=== PATIENT | male | born 1965 | race Caucasian/White ===

== ENCOUNTER 2019-07-31 08:54 | Inpatient (IN) | payer SELFPAY ==
[2019-07-31] VITALS (11 sets, daily range): BP systolic 94–111; BP diastolic 78–91; PULSE 95–131; RESP 20–24; TEMP 35.9–36.1; O2SAT 100; BMI 29.5
--- NOTE | 2019-07-31 | ECHO_ITS ---
Patient Info Name: Sammy Rocha Age: 54 years : 1965 Gender: Male Ht: 70 in Wt: 206 lbs BSA: 2.17 m2 HR: 105 bpm BP: 96 / 81 mmHg Heart Rhythm: Atrial Fibrillation Technical Quality: Good Exam Date: 07/31/2019 1:55 PM Exam Location: [facility] Patient Status: Inpatient Admit Date: 07/31/2019 Staff Ordering Physician: Francisca Persaud MD Lifter/Driver: Stevan Dang RDCS Attending Provider: Tan Cisse MD Referring Physician: Cori MORRISON; Exam Type: CA echo doppler color flow Study Info Indications J81.0 - Acute pulmonary edema Complete two-dimensional, color flow and Doppler transthoracic echocardiogram is performed. History/Risk Factors CHF and pulmonary edema; SOB, COPD exacerbation, PNA/CAP - sepsis, opiate and EtOH abuse. Summary 1. Left ventricular chamber dimension is mildly enlarged. 2. Left ventricular systolic function is severely reduced, estimated at 15-20%. 3. There is no increased left ventricular wall thickness. 4. The left ventricular diastolic function is abnormal. 5. The apical septum, apical lateral wall, apical cap, mid inferoseptal, mid anterolateral wall, and mid anteroseptal are akinetic. 6. The basal inferoseptal, basal anterolateral wall, and mid inferolateral wall are hypokinetic. 7. The inferior wall, and anterior wall are not visualized. 8. Right ventricular chamber dimension is moderately enlarged. 9. Right ventricular systolic function is reduced. 10. Left atrial chamber dimension is severely enlarged. 11. Right atrial chamber dimension is moderately enlarged. 12. The mitral valve has thickened leaflets. 13. There is severe mitral valve regurgitation. 14. Severe pulmonary hypertension, estimated pulmonary arterial systolic pressure is 61 mmHg. 15. There is moderate tricuspid valve regurgitation. 16. 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 Left Ventricle Left ventricular chamber dimension is mildly enlarged. Left ventricular systolic function is severely reduced, estimated at 15-20%. There is no increased left ventricular wall thickness. The left ventricular diastolic function is abnormal. The apical septum, apical lateral wall, apical cap, mid inferoseptal, mid anterolateral wall, and mid anteroseptal are akinetic. The basal inferoseptal, basal anterolateral wall, and mid inferolateral wall are hypokinetic. The inferior wall, and anterior wall are not visualized. Right Ventricle Right ventricular chamber dimension is moderately enlarged. Right ventricular systolic function is reduced. Left Atria Left atrial chamber dimension is severely enlarged. Right Atria Right atrial chamber dimension is moderately enlarged. Atrial Septum Suspected patent foramen ovale visualized by color flow imaging. Aortic Valve The aortic valve is trileaflet. There is mild aortic valve sclerosis. There is no aortic valve stenosis. There is trace aortic valve regurgitation. Pulmonic Valve The pulmonic valve is normal. There is no pulmonic valve stenosis. There is trace pulmonic regurgitation. Mitral Valve The mitral valve has thickened leaflets. There is no mitral valve stenosis. There is severe mitral valve regurgitation. 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 Tricuspid Valve The tricuspid valve leaflets are normal. There is no significant tricuspid valve stenosis. There is moderate tricuspid valve regurgitation. Severe pulmonary hypertension, estimated pulmonary arterial systolic pressure is 6
--- NOTE | ~2019-07-31 | XR_ITS ---
XR chest ET placement 07/31/2019 09:58 Indication: Endotracheal tube and central line placement. Respiratory distress. Procedure: AP portable chest Comparison: 07/31/2019 Findings: Endotracheal tube tip 4.7 cm above the alison. Left IJ central line tip in the SVC. Moderat e cardiomegaly. Mild interstitial edema. No pneumothorax or pleural effusion. NG tube in the stomach. Impression: 1: Moderate cardiomegaly with interstitial edema. Reviewed, dictated and finalized at location B. IFIED CONTROL SYSTEMS TECHNICIAN Impression: 1: Moderate cardiomegaly with interstitial edema.
--- NOTE | ~2019-07-31 | US_ITS ---
EXAMINATION: US art doppler w press LE BI DATE: 07/31/2019 12:00 INDICATION: Peripheral arterial disease. TECHNIQUE: Segmental pressures and plethysmographic and Doppler waveforms of the brachial and lower e xtremity arteries were obtained. COMPARISON: None. FINDINGS: Right and left brachial artery pressures of 109 mm Hg and 99 mm Hg, respectively, are concordant (nor mal difference <= 30 mmHg). Only a faint arterial signal was detectable in right posterior tibial artery. The right ankle-brachia l index (ROBERTO) could not be measured due to inability to cuff-occlude dorsalis pedis (normal >= 0.9-1. 0). The right great toe-brachial index (TBI) could not be measured (normal >= 0.65). Arterial Doppler waveforms are at least triphasic in common femoral artery and biphasic in superficial femoral artery , popliteal artery, and dorsalis pedis. The dorsalis pedis and posterior tibial arterial signals could not be detected. The left TBI was not measured. Arterial Doppler waveforms are biphasic in common femoral artery, superficial femoral arter y, popliteal artery. IMPRESSION: 1. Nondiagnostic ABIs. Arterial signal was only faintly detectable in right posterior tibial artery. There is no detectable arterial signal in left posterior tibial artery or dorsalis pedis. Reviewed, dictated and finalized at location A. SLOT TECHNICIAN IMPRESSION: 1. Nondiagnostic ABIs. Arterial signal was only faintly detectable in right pos terior tibial artery. There is no detectable arterial signal in left posterior tibial artery or dorsalis pedis.
--- NOTE | ~2019-07-31 | US_ITS ---
US right upper quadrant INDICATION: Elevated liver function tests. PROCEDURE: Realtime right upper abdominal ultrasound. COMPARISON: No prior studies for comparison. FINDINGS: The pancreas is normal without focal mass or pancreatic ductal dilation. There is mild int rahepatic biliary dilatation. Otherwise, liver echotexture is normal. No focal masses. There is norm al directional flow in the portal vein. Evaluation of gallbladder limited due to patient inability to roll on side. The gallbladder is normal without stones, gallbladder wall thickening or pericholecystic fluid. Gallbladder is not well disten ded, limiting evaluation for gallbladder wall thickening. Common bile duct measures 4 mm. No sonogra phic Fierro's sign. IMPRESSION: 1: Mild intrahepatic biliary dilatation. Reviewed, dictated and finalized at location B. DE SALES CONSULTANT
--- NOTE | ~2019-07-31 | XR_ITS ---
XR abdomen NG/feed tube insert INDICATION: Evaluate NG tube position. TECHNIQUE: Limited KUB perform for evaluating NG tube . COMPARISON: No prior studies for comparison. FINDINGS: NG tube tip in the stomach. Visualized bowel gas pattern is unremarkable. IMPRESSION: 1: NG tube tip in the stomach. Reviewed, dictated and finalized at location B. RINTENDENT OF SCHOOLS
[2019-07-31] MEDS: PROPOFOL IV EMULSION 100 ML 8.4 MG IV CONT (09:40)
[2019-07-31] MEDS: MIDAZOLAM HCL 50 MG in DEXTROSE 5% 90 ML IV CONT (10:12)
--- NOTE | 2019-07-31 10:30 | P.PCNBED_ITS ---
Procedures Intubation: Intubation Date: 07/31/19 Intubation Time: 09:14 A pre- procedural Time-Out was completed immediately before starting the procedure and confirmed: Patient Identification, Site, Procedure, Patient Position and the Availability of Requisite Equipment: Yes Sedative: etomidate Paralytic: succinylcholine Laryngoscope: fiber optic video scope Assist device used: fiber optic device ET tube size: 8 Tube secured depth (cm): 24 Tube secured location: lips Tube placement confirmation: visualized tube passing through cords, equal breath sounds bilaterally, no breath sounds over epigastrium and confirmation by capnometry Patient tolerated procedure: well Intubation complications: none Additional comments: After obtaining consent from the patient and son and explaining the rationale for intubation. it was decided to go ahead and intubate the patient. The patient was lying in the supine position. Preoxygenation via BVM was provided for a minimum of 3 minutes. The patient had continuous cardiac as well as pulse oximetry monitoring during the procedure. Rapid sequence induction was provided by administration of Etomidate and Succinylcholine. A Glidescope blade 4 was used to directly visualize the vocal cords. A 8 mm endotracheal tube was visualized advancing between the cords to a level of 24 cm at the lip. The style tte was then removed. Tube placement was also noted by fogging in the tube, equal and bilateral breath sounds, no sounds over the epigastrium, and end-tidal colorimetric monitoring. The cuff was then inflated with 10 ml of air and the tube secured using a commercially available device. A good pulse oximetry wave form was seen on the monitor throughout the procedure. The patient was then connected to the ventilator at a tidal volume of 450 ml; rate of 20; FiO2 of 100%; and PEEP of 5. A portable chest x-ray has been ordered for placement. Continued sedation will be provided by Fentanyl and Versed continuous infusion titrated to a RASS of -2. The patient tolerated the procedure well.
--- NOTE | 2019-07-31 10:33 | WPDPROCEDUR ---
Procedures Central Line Placement: Left IJ: Discussed w/ patient and/or surrogate, the non-emergent placement of a central venous catheter, including its clinical necessity/indication & associated potential risks & complications.: Yes The patient and/or surrogate understand(s) and acknowledge(s) the need to proceed with central venous catheter insertion as an important element of the patient's clinical management.: Yes Central Line Date: 07/31/19 Central Line Time: 09:25 Pre-procedural Time-Out was completed immediately before starting the procedure and confirmed: Patient Identification, Site, Procedure, Patient Position and the Availability of Requisite Equipment.: Yes Patient Position: other ( reverse Trendelenburg) Patient placed on monitor/pulse ox: Yes Provider Prep: mask, sterile gown, sterile gloves, Max. sterile barrier precautions, cap and hand hygiene Central line prep: Chlorhexidine scrub and sterile full body sheet applied Local anesthesia used: lidocaine 1% Amount of anesthesia used (ml): 4 Ultrasound used for placement: Yes Central line lumen inserted: triple [place]: 16 Length (cm): 16 Depth of Insertion (cm): 16 Post procedure: sutured in place, good blood return, all ports aspirated, flushed, capped, tegaderm, hemostatic disc, antimicrobial disc and aseptic technique maintained throughout procedure Post procedure x-ray: tip of catheter in good position Patient tolerated procedure: well Complications: none
--- NOTE | 2019-07-31 10:36 | WPDCNINT ---
Assessment and Plan Assessment and plan (1) Severe sepsis: Code(s): A41.9 - Sepsis, unspecified organism; R65.20 - Severe sepsis without septic shock Status: Acute Assessment and Plan: patient presented to the outside hospital with leukocytosis, lactic acidosis, worsening respiratory failure, infiltrates, tachycardia - Source of infection - lungs - blood cultures, urine cultures and sputum cultures have been obtained - patient started on cefepime and azithromycin - patient is holding his own blood pressures at this time (2) Acute respiratory failure: Qualifiers: Respiratory failure complication: unspecified whether with hypoxia or hypercapnia Qualified Code(s): J96.00 - Acute respiratory failure, unspecified whether with hypoxia or hypercapnia Code(s): J96.00 - Acute respiratory failure, unspecified whether with hypoxia or hypercapnia Status: Acute Assessment and Plan: patient presented to the outside hospital with worsening shortness of breath despite taking multiple nebulizer treatments. Patient was diagnosed with community-acquired pneumonia and COPD exacerbation, transfer the ICU at [facility] on 07/30/2019. - Chest x-ray and ABGs reviewed - continue patient on mechanical ventilation, CMV mode, wean FiO2 as tolerated - sedated with fentanyl and Versed infusion, daily sedation vacation, maintain RASS of 0 to -2 (3) Acute exacerbation of chronic obstructive airways disease: Code(s): J44.1 - Chronic obstructive pulmonary disease with (acute) exacerbation Status: Acute Assessment and Plan: patient possible with acute exacerbation of COPD, patient has been steroid dependent, - patient currently intubated, ABGs do not reveal hypercapnia - continue mechanical ventilation, had it is Solu-Medrol as patient is steroid dependent. - continue bronchodilators and antibiotics as above (4) Community acquired pneumonia: Qualifiers: Laterality: unspecified laterality Qualified Code(s): J18.9 - Pneumonia, unspecified organism Code(s): J18.9 - Pneumonia, unspecified organism Status: Acute Assessment and Plan: continue antibiotics as above, on mechanical ventilation (5) Steroid dependent: Status: Acute Assessment and Plan: started on Solu-Medrol (6) Alcoholic: Code(s): F10.20 - Alcohol dependence, uncomplicated Status: Acute Assessment and Plan: patient with history of severe alcoholism and drinks 1-1.5 pt of vodka daily - patient started on folic acid and thiamine - currently intubated and sedated with fentanyl and Versed infusion (7) CHF (congestive heart failure): Qualifiers: Heart failure type: unspecified Heart failure chronicity: unspecified Qualified Code(s): I50.9 - Heart failure, unspecified Code(s): I50.9 - Heart failure, unspecified Status: Acute Assessment and Plan: mild interstitial edema on chest x-ray, oxygen has been very good on the ventilator. Patient on Lasix at home, will hold it for now - will continue to monitor - will obtain echocardiogram (8) A-fib: Qualifiers: Atrial fibrillation type: unspecified Qualified Code(s): I48.91 - Unspecified atrial fibrillation Code(s): I48.91 - Unspecified atrial fibrillation Status: Acute Assessment and Plan: patient with history of AFib, currently in AFib RVR likely related to severe shortness of breath and acute on chronic respiratory failure - patient on amiodarone, metoprolol and diltiazem at home - patient was started on Cardizem infusion of the outside hospital, will continue (9) History of colon cancer: Code(s): Z85.038 - Personal history of other malignant neoplasm of large intestine Status: Acute Assessment and Plan: according the son has a history of colon cancer with last chemotherapy done a month ago (10) Hyperka
[2019-07-31 10:55] LABS: Base Excess ABG -4.3 mEq/l (+/-2.0); Carboxyhemoglobin 0.3 % THb (0-2.0); Fractional Inspired Oxygen 100 %; HCO3 ABG 22.2 mEq/l (22.0-26.0); Methemoglobin ABG 0.4 %THb (0-1.5); Oxygen Content ABG 17.2 %vol (16.0-22.0); Oxygen Saturation ABG 99.9 % (95.0-100.0); Oxyhemoglobin 98.4 % THb (90.0-100.0); PCO2 ABG 46.3 mmHg (35.0-45.0); PO2 ABG 558.7 mmHg (80.0-100.0); PO2 FiO2 Ratio Arterial Blood 5.59 %; Reduced Hemoglobin 0.9 %THb (0-5.0); Total Hemoglobin 11.3 g/dL (12.0-18.0); pH ABG 7.298 (7.350-7.450)
[2019-07-31 11:00] LABS: Device VENTILATOR; Modified Allen's Test Pass; Site Drawn RIGHT RADIAL
[2019-07-31 11:01] LABS: Arterial Blood Gas PEEP 5 cmH2O; Arterial Blood Gas Tidal Volume 450 ml; Arterial Blood Gas Vent Mode CMV; Arterial Blood Gas Ventilator rate 20 /MIN
[2019-07-31 11:02] LABS: Hematocrit 30.5 % (42.0-52.0); Mean Corpuscular HGB Conc 32.8 g/dl (32-36); Mean Corpuscular Hemoglobin 38.3 pg (26-34); Mean Corpuscular Volume 116.9 fl (80-100); Mean Platelet Volume 10.1 fl (7.4-10.4); Platelet Count Result 185 k/mm3 (150-375); Red Blood Count 2.61 M/mm3 (4.6-6.20); Red Cell Distribution Width 15.3 % (11.5-14.5); White Blood Count 9.5 K/mm3 (4.5-10.0)
[2019-07-31] MEDS: SODIUM CHLORIDE 0.9% IV 1,000 ML 999 ML IV CONT (11:05)
[2019-07-31 11:12] LABS: Prothrombin Time 13.2 Seconds (11.1-14.7)
[2019-07-31 11:13] LABS: Lactic Acid Reflex 1.5 mmol/L (0.7-2.1); Partial Thromboplastin Time 23.1 SECONDS (22.3-36.8)
[2019-07-31 11:15] LABS: Alanine Aminotransferase 78 U/L (4-50); Albumin Level 3.8 g/dL (3.5-5.1); Alkaline Phosphatase 369 U/L (38-126); Aspartate Amino Transferase 202 U/L (17-59); Bilirubin,Total 3.1 mg/dL (0.2-1.3); Blood Urea Nitrogen 24 mg/dL (9-20); CRP 1.1 mg/dL (<1.0); Calcium 8.7 mg/dL (8.4-10.2); Carbon Dioxide 22 mmol/L (22-30); Chloride 91 mmol/L (98-107); Estimated CRCL calculation 66 ml/min; Estimated Glomerular Filt Rate > 60; Glucose 173 mg/dL (75-110); Magnesium 1.7 mg/dL (1.6-2.3); Phosphorus 6.3 mg/dL (2.5-4.5); Potassium 5.8 mmol/L (3.4-5.0); Sodium 125 mmol/L (137-145)
[2019-07-31 11:25] LABS: Anisocytosis 1+ (NORMAL); Lymphocytes Absolute Manual 0.19 K/mm3 (1.1-4.5); Monocytes Absolute Manual 0.19 K/mm3 (0.1-0.90); Monocytes Percent Manual 2 % (3-9); Neutrophils Percent Manual 96 % (46-73); Total Cells Counted 100
[2019-07-31 11:26] LABS: Microcytosis 1+ (NORMAL)
[2019-07-31 11:42] LABS: Troponin I 0.191 ng/mL (0.000-0.034)
[2019-07-31] MEDS: DEXTROSE 50% 25 GM/50 ML SYRINGE IV PUSH (11:45)
[2019-07-31] MEDS: SODIUM POLYSTYRENE SULFONONATE 15 GM/60 ML BTL FEED TUBE (11:46)
[2019-07-31] MEDS: FOLIC ACID 1 MG/0.2 ML INJ IV PUSH (11:46)
[2019-07-31] MEDS: methylPREDNISolone SOD SUCC 125 MG VIAL 60 MG IV PUSH (11:46)
[2019-07-31] MEDS: THIAMINE HCL 200 MG/2 ML VIAL 100 MG IV PUSH (11:47)
[2019-07-31] MEDS: ENOXAPARIN 40 MG/0.4 ML SYRINGE SUB-Q (11:47)
[2019-07-31] MEDS: INSULIN HUMAN REGULAR (*BKC) 100 UNITS/ML 10 UNITS IV PUSH (11:47)
[2019-07-31] MEDS: LACTATED RINGERS 1,000 ML 100 ML IV CONT (12:11)
[2019-07-31 12:16] LABS: Hepatitis B Surface Antigen Negative (Negative)
[2019-07-31 12:33] LABS: Hepatitis C Virus Antibody Negative (Negative)
[2019-07-31 12:39] LABS: HAV RESULT Negative (Negative); Hepatitis B Core IgM Result Negative (Negative)
[2019-07-31 12:41] LABS: Glucose Point of Care 166 (65-105)
[2019-07-31] MEDS: SODIUM BICARBONATE 8.4% 50 MEQ/50 ML VIAL IV CONT (12:55)
[2019-07-31] MEDS: PANTOPRAZOLE SODIUM IV 40 MG VIAL IV PUSH (12:56)
--- NOTE | 2019-07-31 13:04 | ADMGEN ---
This patient, Sammy Rocha, was admitted to Intensive Care Unit-8 on 07/31/2019 at 0930. Patient/family oriented to hospital policies and general routines including ID bracelet, bed and alarms, visiting hours, pain management, procedures, bathroom and other care routines, personal items, smoking policy, room service/diet, and visiting hours. Valuables list has been completed. Information on how to activate the Rapid Response Team has been discussed. Patient/Family are encouraged to report perceived risks to care and to ask questions if they do not understand what they are told or what they should do.
[2019-07-31] MEDS: ALBUTEROL SULFATE NEB 2.5 MG/0.5 ML INH 10 MG INHALATION (13:28)
[2019-07-31] MEDS: HEPARIN SOD/D5W 100 UNITS/ML 25,000 UNITS/250 ML BAG 15 UNITS IV CONT (14:06)
[2019-07-31 16:08] LABS: Troponin I 0.159 ng/mL (0.000-0.034)
--- NOTE | 2019-07-31 18:18 | PC.NURSE ---
This patient, Sammy Rocha, was transferred to [[facility] ] on 07/31/19 at 1819. Personal belongings sent with patient. Belongings list checked and signed with receiving [ ]. Report given to [ jhonny at receiveing facility]. Appropriate documentation sent with patient. Medciations continued and maintained by EMS transport: Cardizem 10mg/hr, Heparin 1500units/hr Fentanyl 100mcg/hr and versed 4mg/hr.
--- NOTE | 2019-08-01 20:02 | DS_ITS ---
DATE OF DISCHARGE: 07/31/2019 I am dictating this transfer summary on the patient that I did not see or examine. The information I am dictating is obtained through the chart. DIAGNOSES: 1. Severe sepsis. 2. Acute respiratory failure with hypoxia and hypercapnia. 3. Acute exacerbation of chronic obstructive pulmonary disease. 4. Probable pneumonia. 5. ETOH abuse. 6. Congestive heart failure, systolic, unspecified chronicity. 7. Atrial fibrillation. 8. Peripheral vascular disease HISTORY OF PRESENT ILLNESS: The patient is a 54-year-old male with history of COPD and atrial fibrillation, who presented to [facility] [place] for worsening shortness of breath over the last several days. He is found to be in atrial fibrillation, RVR and felt that he probably had an infiltrate on x-ray, also exacerbation of COPD. He usually gets his care at the hospital in [place], but no beds were available and he is transferred to [facility]. On arrival to the floor, the patient was cyanotic, impending respiratory failure, was immediately intubated and mechanically ventilated. His complete history and physical is enumerated in his admitting history and physical. On admission, white count 13,300, hemoglobin 6, hematocrit 34, platelets 231, 92 segs. Sodium 132, potassium 5, chloride 95, total CO2 of 24, BUN 20, creatinine 1.16, random sugar 113, bilirubin 1.8, AST 169, ALT 73, alkaline phosphatase 441. Initial troponin less than 0.012. BNP 656. Albumin 3.7. His chest x-ray showed interstitial edema. His EKG was atrial fibrillation, rapid ventricular response. HOSPITAL COURSE: 1. Severe sepsis. He was cultured, placed on broad-spectrum antibiotics, cefepime and azithromycin. He was not responding well to therapy, and with the peripheral vascular disease he was transferred to the hospital with vascular surgery access. 2. Acute respiratory failure with hypoxia and hypercapnia. He was placed on the ventilator, mechanically ventilated. 3. Acute exacerbation of COPD. Thought to be part of the precipitating factor for his respiratory failure. He is placed on Solu-Medrol and updrafts and treated for his underlying probable pneumonia. 4. Community-acquired pneumonia. He was placed on the cefepime and azithromycin. 5. History of EtOH abuse. He was started on thiamine and folic acid. Monitor for any signs of withdrawal. 6. History of congestive heart failure, unspecified. Unable to take his oral medicines. His echocardiogram was performed, which revealed an EF only 15% to 20%. Was in ER and we will watch judiciously as lactic acid falls. 7. Atrial fibrillation. Probably in the past usually takes amiodarone, beta-biju, and diltiazem. 8. Peripheral vascular disease. Doppler showed very faintly detectable right posterior tibial artery and there is no detectable arterial signal in the left posterior tibial or dorsalis pedis. Knowing he needed to be seen by vascular surgeon, Dr. Persaud, wool washing machine operator, who examined the patient and made a decision to transfer to higher level of care where Vascular Surgery will be available. At the time of discharge, he is on the antibiotics and heparin. PROCEDURES DURING THIS HOSPITALIZATION: Include the sonogram of right upper quadrant showed no lesions, echocardiogram, arterial Doppler studies. Dr. Persaud, wool washing machine operator was the only subspecialist to see him. At discharge, he was sedated and still intubated. He was discharged to [facility] in [place], [place] for further evaluation of his vascular issues as well as pulmonary. At discharge, he was not responding since he is sedated. He will follow up appropriately after discharge with primary care. List of discharge medication as stated. His usual home medication being held with the ventilation. This
== END 2019-07-31 18:21 | disposition short-term general hospital (02) | DRG 720 ==
PROVIDERS: Internal Medicine; Admitting Provider Internal Medicine; Visit Provider Internal Medicine
DX: A41.9 Sepsis, unspecified organism (principal); R65.20 Severe sepsis without septic shock; J18.9 Pneumonia, unspecified organism; J44.1 Chronic obstructive pulmonary disease with (acute) exacerbation; J44.0 Chronic obstructive pulmonary disease with (acute) lower respiratory infection; J96.01 Acute respiratory failure with hypoxia; J96.02 Acute respiratory failure with hypercapnia; I50.22 Chronic systolic (congestive) heart failure; I48.91 Unspecified atrial fibrillation; I73.9 Peripheral vascular disease, unspecified; F10.20 Alcohol dependence, uncomplicated; E87.5 Hyperkalemia; R94.5 Abnormal results of liver function studies; Z85.038 Personal history of other malignant neoplasm of large intestine
CPT/HCPCS: 31500; 36415; 36600; 76705; 80053; 80074; 82375; 82805; 83050; 83605; 83735; 84100; 84484; 85025; 85610; 85730; 86140; 87040; 87070; 87077; 87081; 87086; 87185; 87205; 93306; 93923; 94002; 94640; A9270; C1751; C9113; J0456; J0692; J1644; J1650; J1815; J2250; J2704; J2930; J3010; J3411; J7030; J7050; J7120